=== PATIENT | male | born 1980 | race Caucasian/White ===

== ENCOUNTER 2020-04-13 11:24 | Emergency (ER) | payer OTHER ==
[~2020-04-13] VITALS: Ht 167.6 cm; Wt 104.3 kg
[~2020-04-13 11:24] MED LIST: IBUPROFEN600 MG PO
== END 2020-04-13 12:00 | disposition home or self-care (01) ==
LOC: ED 11:24
DX: R07.89 Other chest pain (principal)

== ENCOUNTER 2022-12-28 10:53 | Day surgery (SDC) | payer OTHER ==
[2022-12-24 08:14] VITALS: BP 127/83
[~2022-12-28] VITALS: Ht 167.6 cm; Wt 106.8 kg
[2022-12-28 11:13] VITALS: BP 133/85
[2022-12-28] MEDS ORDERED: ALLEGRA ALLERG180 MG PO ×2 (11:16)
[2022-12-28] MEDS ORDERED: BENADRYL25 MG PO ×2 (11:17)
--- NOTE | 2022-12-28 14:36 | NUR ---
12/28/22 1436 Kylah Rosenberg 1423 PT TO PACU DROWSY RESPONDS TO VERBAL COMMANDS, PT CHANGED POSITIONS ROLLED ONTO RT LAT POSITION, PT DENIES PAIN AND NAUSEA.
[2022-12-28] MEDS ORDERED: IBUPROFEN600 MG PO ×2 (14:52)
[2022-12-28] MEDS ORDERED: ACETAMINOPHEN500 MG PO ×2 (14:52)
[2022-12-28] MEDS ORDERED: OXYCODON-ACETA1 EAC2 PO ×2 (14:52)
[2022-12-28 15:02] VITALS: BP 127/69
--- NOTE | 2022-12-28 15:06 | NUR ---
PT ARRIVES FROM PACU DROWSY AND TALKING. PT REPORTS NO PAIN OR NAUSEA. PT PROVIDED ICE WATER, JELL-O, AND CRACKERS. BED IN THE LOWEST POSITION, BED RAIL UP X1, CALL LIGHT PROVIDED, AND AT THE BEDSIDE. PT DENIES ANY FURTHER NEEDS. PT AND PT'S UPDATED ON TIME FRAME AND CRITERIA TO BE DC FROM DAY SURGERY.
--- NOTE | 2022-12-28 15:42 | NUR ---
PT AMBULATED TO THE RESTROOM. PT DENIES ANY DIZZINESS OR NAUSEA.
[2022-12-28 15:46] VITALS: BP 120/69
--- NOTE | 2022-12-28 16:15 | NUR ---
1550 PATIENT CALLED. PATIENT DRESSING SMALL AMOUNT OF RED DRAINAGE SATURATING THE EDGE OF IT. DR. HUTCHISON AWARE. ORDERED TO REPLACE DRESSING. THE DRESSING PUT ON WITH A STERILE TECHNIQUE. ACTICOAT AND OPISITE APPLIED OVER THE TOP TO ENSURE IT IS SECURE. PATIENT HAS MET DISCHARGE CRITERIA. PATIENT DISCHARGE INSTRUCTIONS GIVEN AND UNDERSTOOD. NO QUESTIONS AT THIS TIME. IV D/C'D WNL. PATIENT WHEELED OUT OF FACILITY TO PRIVATE AUTO TO NO FUTHER NEEDS.
--- NOTE | 2023-01-01 15:01 | PATH ---
[facility] [address], [place] [address] Signed SPECIMEN(S): A LEFT PARASPINOUS LUMBAR AREA SPECIMEN SOURCE: A. LEFT PARASPINOUS LUMBAR AREA CLINICAL HISTORY: Excision of lipoma, left paraspinous lumbar area. Giant epidermal inclusion cyst. FINAL PATHOLOGIC DIAGNOSIS: Left paraspinous lumbar area, epidermal inclusion cyst: - Benign squamous epidermal inclusion cyst. - Benign skin and fibroadipose tissue. JVR:simran:C2NR MICROSCOPIC EXAMINATION: Histologic sections of all submitted blocks are examined by light microscopy. These findings, together with the gross examination, support the pathologic diagnosis. GROSS DESCRIPTION: The specimen, labeled and designated "Cece, left paraspinous lumbar," and designated on the requisition "epidermal inclusion cyst," is received in formalin and consists of a lobulated portion of yellow-salazar fatty tissue (6.5 x 4.5 x 4.0 cm) with an attached white-salazar ellipse of skin (4.5 x 1.5 cm). The ellipse of skin has a previously incised/disrupted area (3.4 x 0.5 cm). The resection margin is inked blue, and the tissue is serially sectioned to reveal a cystic area (5.0 x 3.8 x 3.5 cm) containing yellow-salazar, soft and friable material. The remaining cut surfaces contain yellow-salazar fatty tissue. Hand Binder Stripper sections are submitted in cassettes (A1-A3). VB (under the direct supervision of a pathologist) The Gross Description was prepared using a voice recognition system. The report was reviewed for accuracy; however, sound-alike word errors, addition and/or deletions may occur. If there is any question about this report, please contact Client Services. PERFORMING LABORATORY: Technical component was performed by [facility], [address] [place] [id number] (CLIA# [id number]). Professional interpretation was performed by [facility] [place], PATIENT NAME: KIRA GUIDRY PATHOLOGY DATE OF : 76 REPORT #: [id number] PHYSICIAN: [facility] PCP: LAUREN LNAG MD REPORT IS CONFIDENTIAL AND NOT TO BE RELEASED WITHOUT AUTHORIZATION [address] [address] [address]igned [address], [place] [address] (CLIA#: [id number]). Diagnostician: Daron Castelan MD Pathologist Electronically Signed 01/01/2023 Copies: ~ PATIENT NAME: KIRA GUIDRY PATHOLOGY DATE OF : 76 REPORT #: [id number] PHYSICIAN: [facility] PCP: LAUREN LANG MD REPORT IS CONFIDENTIAL AND NOT TO BE RELEASED WITHOUT AUTHORIZATION
--- NOTE | 2023-01-02 10:30 | OR ---
[facility] [address], [place] [address] Signed DATE OF OPERATION: 12/28/2022 SURGEON: Sincere Hutchison MD PREOPERATIVE DIAGNOSIS: Soft tissue mass, left posterior thorax, greater than 6 cm, probable lipoma. POSTOPERATIVE DIAGNOSIS: Soft tissue mass, left posterior thorax. It is 7 cm in size consistent with giant epidermal inclusion cyst. PROCEDURE: Excision of soft tissue mass, left posterior thorax, 7 cm down to posterior thoracic fascia (giant epidermal inclusion cyst). ANESTHESIA: General, LMA, Mohit Nair, TRIMMER MACHINE and local 10 mL of 0.25% Marcaine with epinephrine. INDICATION: This 42-year-old white man is a patient of Dr. Lauren Lang who was noted to have a soft tissue mass of the left posterior thorax not far from the lumbar area. The finding is most consistent with lipoma clinically. It has never had drainage or inflammation or infection. It is far too large to remove in the office setting and he has been recommended to have excision in the operating room under an anesthetic of some sort. Additionally noted, he has gallbladder polyps greater than 1 cm in size and consideration for cholecystectomy was made as well on the basis of the size of the polyps, though he has no symptoms related to the gallbladder at all. At this time, he is here to undergo excision of the soft tissue mass of the posterior thorax, understands the risk of bleeding, infection, recurrence and need for additional treatment should malignancy be identified. 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 It was excised completely and without rupture within the soft tissue of the posterior thorax. It extended down to the posterior lumbar fascia a bit stone as giant size. It was completely excised with no residual disease. Some redundant skin was excised as well. Layered closure was accomplished without need for drain. DESCRIPTION OF PROCEDURE: The patient was brought to the operating room, given a general LMA type anesthetic and Electronically Signed By: SINCERE HUTCHISON MD 01/02/23 1030 PATIENT NAME: KIRA GUIDRY OPERATIVE REPORT DATE OF : 76 REPORT #: [id number] PHYSICIAN: SINCERE HUTCHISON MD PCP: LAUREN LANG MD REPORT IS CONFIDENTIAL AND NOT TO BE RELEASED WITHOUT AUTHORIZATION [facility] [address], [place] [address] Signed placed in the modified lateral position right side down. The posterior thorax area particularly in the lumbar area was prepared with a chlorhexidine solution and draped sterilely. The palpable mass had no punctum and was relatively smooth and contoured and quite largely at least 6 cm in size clinically. An incision was made and dissection was meticulously carried through the dermis with sharp dissection identifying the wall of the lesion which was most likely consistent with an epidermal inclusion cyst rather than lipoma. On that basis realignment of the goal of therapy for complete excision was undertaken with a wide central excision. An elliptical excision was undertaken incorporating the original incision and using electrocautery and sharp dissection with meticulous care, the dermis was freed from the underlying epidermal inclusion cyst wall. It was excised in a lateral to medial configuration having excised the mass down to the posterior lumbar fascia. This indeed did represent a giant epidermal inclusion cyst rather than lipoma or other lesion. Once completely excised. Photographs were additionally taken. Irrigation was undertaken. Hemostasis assured with electrocautery. Superior and inferior flaps were developed somewhat to allow for layered closure. This was accomplished with interrupted 0 Vicryl suture in layers and a running subcuticular 3-0 Vicryl for the skin. Steri-Strips were applied as was an Acticoat dressing. BLOOD LOSS: Minimal. COMPLICATIONS: None. MD SHAVON Ma/OMARL /[id number] cc: Lauren Lang MD Copies: LAUREN LANG DMD ~ Electronically Signed By: SINCERE HUTCHISON MD 01/02/23 1030 PATIENT NAME: KIRA GUIDRY OPERATIVE REPORT DATE OF : 76 REPORT #: [id number] PHYSICIAN: SINCERE HUTCHISON MD PCP: LAUREN LANG MD REPORT IS CONFIDENTIAL AND NOT TO BE RELEASED WITHOUT AUTHORIZATION
== END 2022-12-28 16:00 | disposition home or self-care (01) ==
LOC: DS 10:53 → OPS 10:53 → DS 10:55 → OPS 11:00 → DS 11:00 → OPS 13:05
PROVIDERS: ATTEND Surgery
PROC: 0JB60ZZ Excision of Chest Subcutaneous Tissue and Fascia, Open Approach (ICD-10-PCS; principal; 2022-12-28 13:05)
DX: D21.6 Benign neoplasm of connective and other soft tissue of trunk, unspecified (principal); K81.1 Chronic cholecystitis; E66.9 Obesity, unspecified; E11.9 Type 2 diabetes mellitus without complications; Z68.38 Body mass index [BMI] 38.0-38.9, adult
CPT/HCPCS: 00300; J0131; J0690; J1100; J1644; J1885; J2250; J2405; J2704; J3010; J3490; J7121

== ENCOUNTER 2023-01-01 23:51 | Emergency (ER) | payer OTHER ==
[~2023-01-01] VITALS: Ht 167.6 cm; Wt 106.6 kg
--- OUTSIDE RECORDS SUMMARY | ~2023-01-01 | XMS | Continuity of Care Document ---
Demographics + + + | Address | [address] | | | [place] [address] | + + + | Preferred Language | Unknown | + + + | Marital Status | | + + + | Alevism Affiliation | Unknown | + + + | Race | White | + + + | Ethnic Group | Not or | + + + Author + + + | Author | [facility] | + + + | Organization | [facility] | + + + | Address | [address] | | | [place] [address] | + + + | Phone | | + + + Care Team Providers + + + + | Care Division Manager Name | Role | Phone | + + + + Unavailable | Unavailable | + + + + Unavailable | Unavailable | + + + + Unavailable | Unavailable | + + + + Allergies and Intolerances + + + + + + | date | description | facility | reaction | severity | + + + + + + | (no date) | No Known Drug | [facility] | (no reaction) | (no severity) | | | Allergies | | | | + + + + + + Encounters No information. Functional Status No information. Immunizations + + + + | date | description | facility | + + + + | 2022-12-28 00:00 | No vaccine administered | [facility] | + + + + Medications + + + + | date | description | facility | + + + + | 2022-12-28 00:00 | OXYCODONE | [facility] | | | HCL/ACETAMINOPHEN | | + + + + | 2022-12-28 00:00 | acetaminophen 325 MG / | [facility] | | | oxycodone hydrochloride 7.5 | | | | MG Oral T | | + + + + | 2022-12-28 00:00 | DIPHENHYDRAMINE HCL | [facility] | + + + + | 2022-12-28 00:00 | diphenhydramine | [facility] | | | hydrochloride 25 MG Oral | | | | Capsule | | + + + + | 2016-02-10 00:00 | IBUPROFEN | [facility] | + + + + | 2022-12-28 00:00 | IBUPROFEN | [facility] | + + + + | 2016-02-10 00:00 | ibuprofen 600 MG Oral | [facility] | | | Tablet | | + + + + | 2022-12-28 00:00 | ibuprofen 600 MG Oral | [facility] | | | Tablet | | + + + + | 2022-12-28 00:00 | ACETAMINOPHEN | [facility] | + + + + | 2022-12-28 00:00 | acetaminophen 500 MG Oral | [facility] | | | Tablet | | + + + + | 2022-12-28 00:00 | FEXOFENADINE HCL | [facility] | + + + + | 2022-12-28 00:00 | fexofenadine hydrochloride | [facility] | | | 180 MG Oral Tablet | | | | [[place]] | | + + + + Problems + + + + | date | description | facility | + + + + | 2014-05-29 00:00 | Crushing injury of distal | [facility] | | | finger | | + + + + | 2016-02-10 00:00 | Chest pain of uncertain | [facility] | | | etiology | | + + + + | 2020-04-13 00:00 | Encounter for medical | [facility] | | | screening examination | | + + + + | 2022-02-07 08:55 | TYPE 2 DIABETES MELLITUS | [facility] | | | WITHOUT COMPLICATIONS | | + + + + | 2022-12-24 07:58 | LOCALIZED SWELLING, MASS | [facility] | | | AND LUMP, TRUNK | | + + + + | 2022-12-28 10:53 | BENIGN NEOPLASM OF | [facility] | | | CONNCTV/SOFT TISS OF TRUNK, | | | | UNSP | | + + + + | 2022-12-28 10:53 | TYPE 2 DIABETES MELLITUS | [facility] | | | WITHOUT COMPLICATIONS | | + + + + | 2022-12-28 10:53 | OBESITY, UNSPECIFIED | [facility] | + + + + | 2022-12-28 10:53 | CHRONIC CHOLECYSTITIS | [facility] | + + + + | 2022-12-28 10:53 | LOCALIZED SWELLING, MASS | [facility] | | | AND LUMP, TRUNK | | + + + + | 2022-12-28 10:53 | BODY MASS INDEX (BMI) | [facility] | | | 38.0-38.9, ADULT | | + + + + | 2022-12-28 11:00 | LOCALIZED SWELLING, MASS | [facility] | | | AND LUMP, TRUNK | | + + + + Procedures + + + + | date | description | facility | + + + + | 2022-12-28 00:00 | Excision of lipoma | [facility] | + + + + Results/Labs +--------+--------+ +---------+--------+---------+ | test | date | facility | value | unit | notes | +--------+--------+ +---------+--------+---------+ + + | Result panel 1 | + + + + + +-------+ + + | Blood | 2022-12-24 | [facility] | 8.4 | (missing) | (missing) | | leukocytes | 08:24 | [facility] | | | | | count | | | | | | | (number/volu | | | | | | | me) | | | | | | + + + +-------+ + + + + | Result panel 2 | + + + + + +--------+ + + | Blood | 2022-12-24 | [facility] | 5.06 | (missing) | (missing) | | erythrocytes | 08:24 | [facility] | | | | | count | | | | | | | (number/volu | | | | | | | me) | | | | | | + + + +--------+ + + + + | Result panel 3 | + + + + + +--------+ + + | Blood | 2022-12-24 | [facility] | 15.4 | (missing) | (missing) | | hemoglobin | 08:24 [facility] | | | | | (mass/volume | | | | | | | ) | | | | | | + + + +--------+ + + + + | Result panel 4 | + + + + + +--------+ + + | Automated | 2022-12-24 | [facility] | 45.5 | (missing) | (missing) | | blood | 08:24 [facility] hematocrit [facility] | | | | + + + +--------+ + + + + | Result panel 5 | + + + + + +--------+ + + | Automated | 2022-12-24 | [facility] | 89.9 | (missing) | (missing) | | erythrocyte | 08:24 | [facility] | | | | mean | | [facility] | | | | | corpuscular | | | | | | | volume | | | | | | + + + +--------+ + + + + | Result panel 6 | + + + + + +--------+ + + | Automated | 2022-12-24 | [facility] | 30.5 | (missing) | (missing) | | erythrocyte | 08:24 | [facility] | | | mean | | [facility] | | | | | corpuscular | | | | | | | hemoglobin | | | | | | | (mass per | | | | | | | erythrocyte) | | | | | | | | | | | | | + + + +--------+ + + + + | Result panel 7 | + + + + + +--------+ + + | Automated | 2022-12-24 | [facility] | 33.9 | (missing) | (missing) | | erythrocyte | 08:24 | [facility] | | | | mean | | [facility] | | | | | corpuscular | | | | | | | hemoglobin | | | | | | | concentratio | | | | | | | n | | | | | | | measurement | | | | | | | (mass/volume | | | | | | | ) | | | | | | + + + +--------+ + + + + | Result panel 8 | + + + + + +--------+ + + | Automated | 2022-12-24 | [facility] | 12.3 | (missing) | (missing) | | erythrocyte | 08:24 | [facility] | | | distribution | [facility] | | | | | width | | | | | | + + + +--------+ + + + + | Result panel 9 | + + + + + +-------+ + + | Automated | 2022-12-24 | [facility] | 303 | (missing) | (missing) | | blood | 08:24 | [facility] platelet | [facility] | | | | | count | | | | | | | (count/volum | | | | | | | e) | | | | | | + + + +-------+ + + + + | Result panel 10 | + + + + + +--------+ + + | Automated | 2022-12-24 | [facility] | 72.4 | (missing) | (missing) | | blood | 08:24 | [facility] | | | neutrophil | | [facility] | | | | | count as | | | | | | | percentage | | | | | | | of total | | | | | | | leukocytes | | | | | | + + + +--------+ + + + + | Result panel 11 | + + + + + +--------+ + + | Automated | 2022-12-24 | [facility] | 18.5 | (missing) | (missing) | | blood | 08:24 | [facility] | | | lymphocyte | | [facility] | | | | | count as | | | | | | | percentage | | | | | | | ot total | | | | | | | leukocytes | | | | | | + + + +--------+ + + + + | Result panel 12 | + + + + + +-------+ + + | Automated | 2022-12-24 | [facility] | 6.9 | (missing) | (missing) | | blood | 08:24 | [facility] | | | monocyte | | [facility] | | | | | count as | | | | | | | percentage | | | | | | | of total | | | | | | | leukocytes | | | | | | + + + +-------+ + + + + | Result panel 13 | + + + + + +-------+ + + | Automated | 2022-12-24 | [facility] | 1.6 | (missing) | (missing) | | blood | 08:24 | [facility] | | | | eosinophil | | [facility] | | | | | count as | | | | | | | percentage | | | | | | | of total | | | | | | | leukocytes | | | | | | + + + +-------+ + + + + | Result panel 14 | + + + + + +-------+ + + | Automated | 2022-12-24 | [facility] | 0.6 | (missing) | (missing) | | blood | 08:24 | [facility] | | | basophil | | [facility] | | | | | count as | | | | | | | percentage | | | | | | | of total | | | | | | | leukocytes | | | | | | + + + +-------+ + + + + | Result panel 15 | + + + + + +-------+ + + | Serum or | 2022-12-24 | [facility] | 147 | (missing) | (missing) | | plasma | 08:24 | [facility] | | | glucose | | [facility] | | | | | measurement | | | | | | | (mass/volume | | | | | | | ) | | | | | | + + + +-------+ + + + + | Result panel 16 | + + + + + +------+ + + | Serum or | 2022-12-24 | [facility] | 23 | (missing) | (missing) | | plasma urea | 08:24 | [facility] | | | nitrogen | [facility] | | | | | measurement | | | | | | | (mass/volume | | | | | | | ) | | | | | | + + + +------+ + + + + | Result panel 17 | + + + + + +--------+ + + | Serum or | 2022-12-24 | [facility] | 1.15 | (missing) | (missing) | | plasma | 08:24 | [facility] | | | creatinine | | [facility] | | | | | measurement | | | | | | | (mass/volume | | | | | | | ) | | | | | | + + + +--------+ + + + + | Result panel 18 | + + + + + +------+ + + | Glomerular | 2022-12-24 | [facility] | 80 | (missing) | (missing) | | filtration | 08:24 | [facility] | | | | | rate/1.73 sq | | Hospital | | | | | M.predicted | | | | | | | [Volume | | | | | | | Rate/Area] | | | | | | | inSerum, | | | | | | | Plasma or | | | | | | | Blood by | | | | | | | Creatinine-b | | | | | | | ased formula | | | | | | | (CKD-EPI | | | | | | | 2020) | | | | | | + + + +------+ + + + + | Result panel 19 | + + + + + +---------+ + + | Serum or | 2022-12-24 | [facility] | 20.00 | (missing) | (missing) | | plasma urea | 08:24 | [facility] | | | | nitrogen/cre | | [facility] | | | | | atinine mass | | | | | | | ratio | | | | | | + + + +---------+ + + + + | Result panel 20 | + + + + + +-------+ + + | Serum or | 2022-12-24 | [facility] | 140 | (missing) | (missing) | | plasma | 08:24 | [facility] | | | sodium | | [facility] | | | | | measurement | | | | | | | (moles/volum | | | | | | | e) | | | | | | + + + +-------+ + + + + | Result panel 21 | + + + + + +-------+ + + | Serum or | 2022-12-24 | [facility] | 4.8 | (missing) | (missing) | | plasma | 08:24 | [facility] | | | potassium | | [facility] | | | | | measurement | | | | | | | (moles/volum | | | | | | | e) | | | | | | + + + +-------+ + + + + | Result panel 22 | + + + + + +-------+ + + | Serum or | 2022-12-24 | [facility] | 103 | (missing) | (missing) | | plasma | 08:24 | [facility] | | | | chloride | | [facility] | | | | | measurement | | | | | | | (moles/volum | | | | | | | e) | | | | | | + + + +-------+ + + + + | Result panel 23 | + + + + + +------+ + + | Serum or | 2022-12-24 | [facility] | 30 | (missing) | (missing) | | plasma | 08:24 | [facility] | | | | carbon | | [facility] | | | | | dioxide, | | | | | | | total | | | | | | | measurement | | | | | | | (moles/volum | | | | | | | e) | | | | | | + + + +------+ + + + + | Result panel 24 | + + + + + +--------+ + + | Serum or | 2022-12-24 | [facility] | 11.8 | (missing) | (missing) | | plasma anion | 08:24 | [facility] | | | gap 4 | | [facility] | | | | + + + +--------+ + + + + | Result panel 25 | + + + + + +-------+ + + | Serum or | 2022-12-24 | [facility] | 9.1 | (missing) | (missing) | | plasma | 08:24 | [facility] | | | calcium | [facility] | | | | | measurement | | | | | | | (mass/volume | | | | | | | ) | | | | | | + + + +-------+ + + + + | Result panel 26 | + + + + + +-------+ + + | Serum or | 2022-12-24 | [facility] | 7.7 | (missing) | (missing) | | plasma | 08:24 | [facility] | | | protein | [facility] | | | | | measurement | | | | | | | (mass/volume | | | | | | | ) | | | | | | + + + +-------+ + + + + | Result panel 27 | + + + + + +-------+ + + | Serum or | 2022-12-24 | [facility] | 3.8 | (missing) | (missing) | | plasma | 08:24 | [facility] | | | albumin | [facility] | | | | | measurement | | | | | | | (mass/volume | | | | | | | ) | | | | | | + + + +-------+ + + + + | Result panel 28 | + + + + + +-------+ + + | Serum | 2022-12-24 | [facility] | 3.9 | (missing) | (missing) | | globulin | 08:24 | [facility] | [facility] | | | | | (mass/volume | | | | | | | ) | | | | | | + + + +-------+ + + + + | Result panel 29 | + + + + + +--------+ + + | Serum or | 2022-12-24 | [facility] | 0.97 | (missing) | (missing) | | plasma | 08:24 | [facility] | | | | albumin/glob | | [facility] | | | | | ulin mass | | | | | | | ratio | | | | | | + + + +--------+ + + + + | Result panel 30 | + + + + + +-------+ + + | Serum or | 2022-12-24 | [facility] | 0.4 | (missing) | (missing) | | plasma total | 08:24 | [facility] | | | | bilirubin | | [facility] | | | | | measurement | | | | | | | (mass/volume | | | | | | | ) | | | | | | + + + +-------+ + + + + | Result panel 31 | + + + + + +------+ + + | Serum or | 2022-12-24 | [facility] | 17 | (missing) | (missing) | | plasma | 08:24 | [facility] | | | | aspartate | | [facility] | | | | | aminotransfe | | | | | | | rase | | | | | | | measurement | | | | | | | (enzymatic | | | | | | | activity/vol | | | | | | | ume) | | | | | | + + + +------+ + + + + | Result panel 32 | + + + + + +------+ + + | Serum or | 2022-12-24 | [facility] | 49 | (missing) | (missing) | | plasma | 08:24 | [facility] | | | | alanine | | [facility] | | | | | aminotransfe | | | | | | | rase | | | | | | | measurement | | | | | | | (enzymatic | | | | | | | activity/vol | | | | | | | ume) | | | | | | + + + +------+ + + + + | Result panel 33 | + + + + + +------+ + + | Serum or | 2022-12-24 | [facility] | 95 | (missing) | (missing) | | plasma | 08:24 | [facility] | | | | alkaline | [facility] | | | | | phosphatase | | | | | | | measurement | | | | | | | (enzymatic | | | | | | | activity/vol | | | | | | | ume) | | | | | | + + + +------+ + + + + | Result panel 34 | + + + + + +-------+ + + | | 2022-12-24 | [facility] | 303 | (missing) | (missing) | | (unavailable | 08:24:07 [facility] | | | | + + + +-------+ + + + + | Result panel 35 | + + + + + +--------+ + + | | 2022-12-24 | [facility] | 72.4 | (missing) | (missing) | | (unavailable | : [facility] | | | | + + + +--------+ + + + + | Result panel 36 | + + + + + +--------+ + + | | 2022-12-24 | [facility] | 18.5 | (missing) | (missing) | | (unavailable | : [facility] | | | | + + + +--------+ + + + + | Result panel 37 | + + + + + +-------+ + + | | 2022-12-24 | [facility] | 6.9 | (missing) | (missing) | | (unavailable | 08:24:07 [facility] | | | | + + + +-------+ + + + + | Result panel 38 | + + + + + +-------+ + + | | 2022-12-24 | [facility] | 1.6 | (missing) | (missing) | | (unavailable | 08:24:07 [facility] | | | | + + + +-------+ + + + + | Result panel 39 | + + + + + +-------+ + + | | 2022-12-24 | [facility] | 0.6 | (missing) | (missing) | | (unavailable | 08::07 [facility] | | | | + + + +-------+ + + + + | Result panel 40 | + + + + + +-------+---------+ + | | 2022-12-24 | [facility] | 147 | mg/dL | (missing) | | (unavailable | 08:24:07 [facility] | | | | + + + +-------+---------+ + + + | Result panel 41 | + + + + + +------+---------+ + | | 2022-12-24 | [facility] | 23 | mg/dL | (missing) | | (unavailable | 08:24:07 [facility] | | | | + + + +------+---------+ + + + | Result panel 42 | + + + + + +--------+---------+ + | | 2022-12-24 | [facility] | 1.15 | mg/dL | (missing) | | (unavailable | 08:24:07 [facility] | | | | + + + +--------+---------+ + + + | Result panel 43 | + + + + + +------+ + + | | 2022-12-24 | [facility] | 80 | (missing) | (missing) | | (unavailable | 08:24:07 [facility] | | | | + + + +------+ + + + + | Result panel 44 | + + + + + +-------+ + + | | 2022-12-24 | [facility] | 8.4 | (missing) | (missing) | | (unavailable | 08:24:07 [facility] | | | | + + + +-------+ + + + + | Result panel 45 | + + + + + +---------+ + + | | 2022-12-24 | [facility] | 20.00 | (missing) | (missing) | | (unavailable | 08:24:07 [facility] | | | | + + + +---------+ + + + + | Result panel 46 | + + + + + +-------+ + + | | 2022-12-24 | [facility] | 140 | (missing) | (missing) | | (unavailable | 08:24:07 [facility] | | | | + + + +-------+ + + + + | Result panel 47 | + + + + + +-------+ + + | | 2022-12-24 | [facility] | 4.8 | (missing) | (missing) | | (unavailable | 0824:07 [facility] | | | | + + + +-------+ + + + + | Result panel 48 | + + + + + +-------+ + + | | 2022-12-24 | [facility] | 103 | (missing) | (missing) | | (unavailable | 08:24:07 [facility] | | | | + + + +-------+ + + + + | Result panel 49 | + + + + + +------+ + + | | 2022-12-24 | [facility] | 30 | (missing) | (missing) | | (unavailable | 08:24:07 [facility] | | | | + + + +------+ + + + + | Result panel 50 | + + + + + +--------+ + + | | 2022-12-24 | [facility] | 11.8 | (missing) | (missing) | | (unavailable | 08:24:07 [facility] | | | | + + + +--------+ + + + + | Result panel 51 | + + + + + +-------+---------+ + | | 2022-12-24 | [facility] | 9.1 | mg/dL | (missing) | | (unavailable | 08:24:07 [facility] | | | | + + + +-------+---------+ + + + | Result panel 52 | + + + + + +-------+ + + | | 2022-12-24 | [facility] | 7.7 | (missing) | (missing) | | (unavailable | 08:24:07 [facility] | | | | + + + +-------+ + + + + | Result panel 53 | + + + + + +-------+ + + | | 2022-12-24 | [facility] | 3.8 | (missing) | (missing) | | (unavailable | 08:24:07 [facility] | | | | + + + +-------+ + + + + | Result panel 54 | + + + + + +-------+ + + | | 2022-12-24 | [facility] | 3.9 | (missing) | (missing) | | (unavailable | 08:24:07 [facility] | | | | + + + +-------+ + + + + | Result panel 55 | + + + + + +--------+ + + | | 2022-12-24 | [facility] | 5.06 | (missing) | (missing) | | (unavailable | 08:24:07 [facility] | | | | + + + +--------+ + + + + | Result panel 56 | + + + + + +--------+ + + | | 2022-12-24 | [facility] | 0.97 | (missing) | (missing) | | (unavailable | 08:24:07 [facility] | | | | + + + +--------+ + + + + | Result panel 57 | + + + + + +-------+ + + | | 2022-12-24 | [facility] | 0.4 | (missing) | (missing) | | (unavailable | 08:24:07 [facility] | | | | + + + +-------+ + + + + | Result panel 58 | + + + + + +------+ + + | | 2022-12-24 | [facility] | 17 | (missing) | (missing) | | (unavailable | 08:24:07 [facility] | | | | + + + +------+ + + + + | Result panel 59 | + + + + + +------+ + + | | 2022-12-24 | [facility] | 49 | (missing) | (missing) | | (unavailable | 08:24:07 [facility] | | | | + + + +------+ + + + + | Result panel 60 | + + + + + +------+ + + | | 2022-12-24 | [facility] | 95 | (missing) | (missing) | | (unavailable | 08:24:07 [facility] | | | | + + + +------+ + + + + | Result panel 61 | + + + + + +--------+ + + | | 2022-12-24 | [facility] | 15.4 | (missing) | (missing) | | (unavailable | 08:24:07 [facility] | | | | + + + +--------+ + + + + | Result panel 62 | + + + + + +--------+ + + | | 2022-12-24 | [facility] | 45.5 | (missing) | (missing) | | (unavailable | 08:24:07 [facility] | | | | + + + +--------+ + + + + | Result panel 63 | + + + + + +--------+ + + | | 2022-12-24 | [facility] | 89.9 | (missing) | (missing) | | (unavailable | 08::07 [facility] | | | | + + + +--------+ + + + + | Result panel 64 | + + + + + +--------+ + + | | 2022-12-24 | [facility] | 30.5 | (missing) | (missing) | | (unavailable | [facility] | | | | + + + +--------+ + + + + | Result panel 65 | + + + + + +--------+ + + | | 2022-12-24 | [facility] | 33.9 | (missing) | (missing) | | (unavailable | [facility] | | | | + + + +--------+ + + + + | Result panel 66 | + + + + + +--------+ + + | | 2022-12-24 | [facility] | 12.3 | (missing) | (missing) | | (unavailable | :: [facility] | | | | + + + +--------+ + + + + | Result panel 67 | + + + + + +-------+ + + | | 2022-12-28 | [facility] | 115 | (missing) | (missing) | | (unavailable | ::07 [facility] | | | | + + + +-------+ + + + + | Whole blood glucose measurement using handheld analyzer (mass/volume) | + + + + + +-------+ + + | Whole blood | 2022-12-28 | [facility] | 115 | (missing) | (missing) | | glucose | 12:20 | [facility] | | | | | using | | | | | | | handheld | | | | | | | analyzer | | | | | | | (mass/volume | | | | | | | ) | | | | | | + + + +-------+ + + Social History + + + + | date | description | facility | + + + + | 2022-12-28 00:00 | [facility] | + + + + Vital Signs + + + +---------+ | date | measurement | value | units | + + + +---------+ | 2022-12-24 00:00 | BMI | 38.0 | kg/m2 | + + + +---------+ | 2022-12-24 00:00 | height_metric | 167.64 | cm | + + + +---------+ | 2022-12-24 00:00 | height_standard | 66 | in | + + + +---------+ | 2022-12-24 00:00 | weight_metric | 106.81 | kg | + + + +---------+ | 2022-12-24 00:00 | weight_standard | 235.48 | lb | + + + +---------+ | 2022-12-28 00:00 | BP_diastolic | 69 | mmHg | + + + +---------+ | 2022-12-28 00:00 | BP_systolic | 120 | mmHg | + + + +---------+ | 2022-12-28 00:00 | heart_rate | 72 | /min | + + + +---------+ | 2022-12-28 00:00 | o2_saturation | 96 | % | + + + +---------+ | 2022-12-28 00:00 | respiration_rate | 14 | /min | + + + +---------+ | 2022-12-28 00:00 | temperature_metric | 36.44 | C | | | | | | + + + +---------+ | 2022-12-28 00:00 | | 97.6 | F | | | temperature_standar | | | | | d | | | + + + +---------+"
--- OUTSIDE RECORDS SUMMARY | ~2023-01-01 | XMS | Continuity of Care Document ---
Demographics + + + | Address | [address] | | | [place] [address] | + + + | Preferred Language | Unknown | + + + | Marital Status | | + + + | Episcopal Affiliation | Unknown | + + + | Race | White | + + + | Ethnic Group | Not or | + + + Author + + + | Author | [facility] | + + + | Organization | [facility] | + + + | Address | [address] | | | [place] [address] | + + + | Phone | | + + + Care Team Providers + + + + | Care Bull Riveter Name | Role | Phone | + [...] 00:00 | No vaccine administered | [facility] | + + + + Medications + + + + | date | description | facility | + + + + | 2022-12-28 00:00 | OXYCODONE | [facility] | | | HCL/ACETAMINOPHEN | | + + + + | 2022-12-28 00:00 | acetaminophen 325 MG / | [facility] | | | oxycodone hydrochloride 7.5 | | | | MG Oral T | | + + + + | 2022-12-28 00:00 | DIPHENHYDRAMINE HCL | [facility] | + + + + | 2022-12-28 00:00 | diphenhydramine | [facility] | | | hydrochloride 25 MG Oral | | | | Capsule | | + + + + | 2016-02-10 00:00 | IBUPROFEN | [facility] | + + + + | 2022-12-28 00:00 | IBUPROFEN | [facility] | + + + + | 2016-02-10 00:00 | ibuprofen 600 MG Oral | [facility] | | | Tablet | | + + + + | 2022-12-28 00:00 | ibuprofen 600 MG Oral | [facility] | | | Tablet | | + + + + | 2022-12-28 00:00 | ACETAMINOPHEN | [facility] | + + + + | 2022-12-28 00:00 | acetaminophen 500 MG Oral | [facility] | | | Tablet | | + + + + | 2022-12-28 00:00 | FEXOFENADINE HCL | [facility] | + + + + | 2022-12-28 00:00 | fexofenadine hydrochloride | [facility] | | | 180 MG Oral Tablet | | | | [[place]] | | + + + + Problems + + + + | date | description | facility | + + + + | 2014-05-29 00:00 | Crushing injury of distal | [facility] | | | finger | | + + + + | 2016-02-10 00:00 | Chest pain of uncertain | [facility] | | | etiology | | + + + + | 2020-04-13 00:00 | Encounter for medical | [facility] | | | screening examination | [...] 2022-12-28 00:00 | Excision of lipoma | [facility] | + + + + Results/Labs [...] 2022-12-28 00:00 | [facility]oker [facility] + + + + [...]
[~2023-01-01 23:51] MED LIST changes: +ACETAMINOPHEN500 MG PO; +ALLEGRA ALLERG180 MG PO; +BENADRYL25 MG PO; +OXYCODON-ACETA1 EAC2 PO
[2023-01-02 02:24] VITALS: BP 125/79
--- NOTE | 2023-01-03 14:17 | EKG ---
[facility] [facility] [address] [place] [address] Signed Normal sinus rhythm Nonspecific T wave abnormality Abnormal ECG When compared with ECG of 10-FEB-2016 11:42, No significant change was found Confirmed by Adebayo Zimmerman MD () on 01/03/2023 2:17:10 PM Electronically Signed By: ADEBAYO ZIMMERMAN MD 01/03/23 1417 PATIENT NAME: KIRA GUIDRY NADINE Electrocardiogram DATE OF : 76 PHYSICIAN: ADEBAYO ZIMMERMAN MD REPORT #: [id number] REPORT IS CONFIDENTIAL AND NOT TO BE RELEASED WITHOUT AUTHORIZATION
== END 2023-01-02 02:24 | disposition home or self-care (01) ==
LOC: ED 23:51
DX: R55 Syncope and collapse (principal); Z48.817 Encounter for surgical aftercare following surgery on the skin and subcutaneous tissue; Z79.899 Other long term (current) drug therapy
CPT/HCPCS: 36415; 80053; 85025; 93005; 93010; 96360; 99284-25; J7030

== ENCOUNTER 2024-05-13 05:41 | Day surgery (SDC) | payer OTHER ==
[2024-05-07 16:08] VITALS: BP 139/77
[~2024-05-13] VITALS: Ht 167.6 cm; Wt 103.2 kg
[~2024-05-13 05:41] MED LIST changes: +ALEVE220 MG PO; +EXCEDRIN MIGRA1 EAC2 PO; +OZEMPIC2 MG/0.75
[2024-05-13 05:57] VITALS: BP 114/70
[2024-05-13] MEDS ORDERED: SUDAFED 12 HOU120 MG PO (05:59)
[2024-05-13] MEDS ORDERED: IBLOOD GLUCOSE TEST STRIP 1 EA TEST VI PRN ×3 (07:00→07:15)
[2024-05-13] MEDS ORDERED: LIDOCAINE HCL 1% 5 ML SDV INJ ONE (07:00)
[2024-05-13] MEDS ORDERED: LACTATED RINGER'S 1,000 ML IV SCH (07:00)
[2024-05-13] MEDS ORDERED: propofoL 200 MG/20 ML VIAL ONE ×2 (07:08→08:11)
[2024-05-13] MEDS ORDERED: fentaNYL citrate 50 MCG/ML SDV IV PRN (07:15)
[2024-05-13] MEDS ORDERED: NALOXONE HCL 0.4 MG SYR IV PRN ×2 (07:15)
[2024-05-13] MEDS ORDERED: ondansetron HCL 4 MG/2 ML VIAL IV PRN (07:15)
[2024-05-13] MEDS ORDERED: LIDOCAINE HCL 2% 5 ML SDV ONE ×2 (07:21→08:26)
--- NOTE | 2024-05-13 08:01 | NUR ---
05/13/24 0801 Jenifer Herrera 0748-PATIENT ARRIVED TO PACU ON 6L MASK RR EVEN LAYING LEFT LATERAL. PATIENT NONAROUSABLE ABDOMEN ROUND AND SOFT. IV NOT INFUSING AND UNABLE TO FLUSH. GLUCOSE CHECKED 118. SR 0751-PATIENT REACTIVE TO VERBAL STIMULI REMAINS VERY DROWSY SLIGHTLY OPENS EYES. IV TAPE REMOVED AND IV REPOSITIONED, INFUSING WITH LR INTACT. 0800-PATIENT REMAINS VERY DROWSY DENIES PAIN OR NAUSEA. HOB ELEVATED 6L MASK 98% RR EVEN.
--- NOTE | 2024-05-13 08:45 | OR ---
[facility] [address], [place] [address] Signed DATE OF OPERATION: 05/13/2024 SURGEON: Krystyna Macdonald MD PREOPERATIVE DIAGNOSIS: Screening. POSTOPERATIVE DIAGNOSIS: Minimal left-sided diverticulosis. PROCEDURE: Colonoscopy without biopsy. ESTIMATED BLOOD LOSS: None. INDICATIONS: Kira is a 44-year-old obese gentleman, asked to see me for his initial screening colonoscopy. He said he has had some constipation with his Ozempic. He said there is no family history of colon cancer or polyps. I had given him a brochure on colonoscopy while in the office. He understands the nature of the test. There is risk including, but not limited to gas bloating, crampy abdominal pain, bleeding, perforation requiring surgery, and missed diagnosis. We also reviewed the written instructions for a bowel prep line by line. We also went through his medications very carefully. We had him hold the Ozempic one week prior to the procedure. We had him hold Excedrin and Aleve 3 days prior to the procedure. We can see that he uses marijuana. He has migraine headaches and chronic back pain. For some reason, he has recurrent airway aspiration. He also has diabetes. He also has a full round heavy face and neck, chest and abdomen. In that regard, he did need monitored anesthesia care with propofol infusion. He needed preoperative blood work as well. He understands that an adult person has to take him home afterwards. He said that would likely be his . He had expressed understanding and wished to proceed. DESCRIPTION OF PROCEDURE: Kira was taken into our endoscopy suite and placed in the left lateral decubitus position. He was given monitored anesthesia care with propofol infusion per our nurse sign shop supervisor. In fact, he did take extra propofol throughout the case. A digital rectal exam was performed and this was unremarkable. No external hemorrhoids. Good sphincter tone. There were no masses. The adult colonoscope had been introduced and advanced under direct visualization of the camera. He still had some areas of formed stool and Electronically Signed By: KRYSTYNA MACDONALD MD 05/13/24 0845 PATIENT NAME: KIRA GUIDRY OPERATIVE REPORT DATE OF : 76 REPORT #: [id number] PHYSICIAN: KRYSTYNA MACDONALD MD PCP: LAUREN LANG MD REPORT IS CONFIDENTIAL AND NOT TO BE RELEASED WITHOUT AUTHORIZATION [facility] [address] [place], [place] [address] Signed thick pasty stool that we obviously cannot suction through the scope. In that regard, he should increase his polyethylene glycol up to one full gallon for his next colonoscopy. He should probably continue the Dulcolax tablets as well for his bowel prep. We eventually made it around with some abdominal compression and increase propofol to the cecum itself. His cecum was heavily laden with thick particulate stool matter that I simply could not irrigate and suction out. However, the rest of the colon was better in that regard. We did slowly withdrawal the scope. We could easily see his ileocecal valve. We had taken several pictures throughout for photodocumentation. He has some diverticula in the left and sigmoid colon. They were small to moderate in size, few in number and scattered about. The rectum was unremarkable. Upon retroflexion of the scope, we could not see any pathology above the anal canal. After this, the gas was suctioned out and the colonoscope removed. Kira tolerated the procedure quite well. RECOMMENDATIONS: Kira can return in 10 years for repeat screening colonoscopy. He needs to use a full gallon of polyethylene glycol along with his Dulcolax tablets. He will likely need monitored anesthesia care for the rest of his life. Krystyna Macdonald MD ALB/MODL /[id number] cc: MD Lauren Trinidad MD Copies: KRYSTYNA MACDONALD MD, ROBERT D DMD ~ Electronically Signed By: KRYSTYNA MACDNOALD MD 05/13/24 0845 PATIENT NAME: KIRA GUIDRY OPERATIVE REPORT DATE OF : 76 REPORT #: [id number] PHYSICIAN: KRYSTYNA MACDONALD MD PCP: LAUREN LANG MD REPORT IS CONFIDENTIAL AND NOT TO BE RELEASED WITHOUT AUTHORIZATION
[2024-05-13 09:23] VITALS: BP 111/77
== END 2024-05-13 09:15 | disposition home or self-care (01) ==
LOC: DS 05:41
PROVIDERS: ATTEND Colon & Rectal Surgery
PROC: 0DJD8ZZ Inspection of Lower Intestinal Tract, Via Natural or Artificial Opening Endoscopic (ICD-10-PCS; principal; 2024-05-13 07:30)
DX: Z12.11 Encounter for screening for malignant neoplasm of colon (principal); K57.30 Diverticulosis of large intestine without perforation or abscess without bleeding; E11.9 Type 2 diabetes mellitus without complications; K76.0 Fatty (change of) liver, not elsewhere classified; G43.909 Migraine, unspecified, not intractable, without status migrainosus; E66.9 Obesity, unspecified; Z68.38 Body mass index [BMI] 38.0-38.9, adult; Z79.899 Other long term (current) drug therapy
CPT/HCPCS: 00811; J2003; J2704; J7121